=== PATIENT | female | born 1945 | race Caucasian/White ===

== ENCOUNTER 2018-09-22 00:34 | Inpatient (IN) | payer MEDICARE, BC ==
[2018-09-22] MEDS ORDERED: Famotidine/PF 20 mg/2ml Vial ONE (01:17)
[2018-09-22] MEDS ORDERED: Mag-Al Plus 1200 MG/1200 MG/120 MG/30 ML UDCUP ONE (01:17)
[2018-09-22] MEDS ORDERED: Lidocaine Viscous Sol 2% 15 ml UD Cup ONE (01:17)
[2018-09-22 01:19] LABS: #Basophils 0.1 thou/uL (0.0-0.2); #Eosinphils 0.1 thou/uL (0.0-0.7); #Lymphocytes 1.1 thou/uL (1.20-3.40); #Monocytes 0.6 thou/uL (0.11-0.59); %Basophils 0.7 % (0.0-1.0); %Eosinophils 0.7 % (0.0-10.0); %Monocytes 5.6 % (0.0-10.0); Hemoglobin 13.1 g/dL (12.0-16.0); Mean Corpuscular HGB CONC 34.3 g/dL (32.0-36.0); Mean Corpuscular Hemoglobin 27.2 pg (27.0-31.0); Mean Corpuscular Volume 79.2 fL (78.0-98.0); Mean Platelet Volume 8.7 fL (7.4-10.4); Platelet Count 216 thou/uL (130-400); RBC Distribution Width 13.1 % (11.5-14.5); Red Blood Cell (RBC) Count 4.84 mill/uL (4.20-5.40); White Blood Cell (WBC) Count 10.9 thou/uL (4.8-10.8)
[2018-09-22 01:44] LABS: ALT (SGPT) 246 U/L (8-55); AST (SGOT) 481 U/L (5-34); Albumin 3.7 g/dL (3.4-4.8); Alkaline Phosphatase 88 U/L (40-150); Anion Gap 14 mmol/L (10-20); BUN (Urea Nitrogen) 16 mg/dL (9.8-20.1); Bilirubin, Total 1.3 mg/dL (0.2-1.2); Calc. Creatinine Clearance 0 mL/min (70-130); Carbon Dioxide 21 mmol/L (23-31); Chloride 104 mmol/L (98-107); Estimated GFR-MDRD 72; Glucose 186 mg/dL (83-110); Potassium 4.2 mmol/L (3.5-5.1); Protein, Total 5.7 g/dL (6.0-8.3); Sodium 135 mmol/L (136-145)
[2018-09-22] MEDS ORDERED: Ondansetron PF 4 MG/2 ML Vial ONE (01:50)
[2018-09-22] MEDS ORDERED: Morphine 4 MG/ML Carpuject ONE ×2 (01:50→02:25)
[2018-09-22 02:03] LABS: Lipase Greater than 16000 U/L (8-78)
[2018-09-22] MEDS ORDERED: Ondansetron PF 4 MG/2 ML Vial IVP PRN (03:37)
[2018-09-22 03:39] VITALS: BMI 27.9
[2018-09-22] MEDS: Dextrose 5 %-0.45 % NaCl 1,000 ML IV SCH ×3 (04:00→22:30)
[2018-09-22] MEDS: Morphine 4 MG/ML VIAL SLOW IVP PRN ×4 (06:29→12:51)
--- NOTE | 2018-09-22 07:37 | RAD ---
CHEST 1 VIEW: HISTORY: Epigastric pain. COMPARISON: None. FINDINGS: Lungs without focal confluent airspace consolidation, pneumothorax, or effusion. There is a nodule i n the right mid lung. No acute osseous abnormality. Incomplete evaluation of ACDF hardware. IMPRESSION: Focal nodule right mid lung projecting over the anterior right 4th rib. Nonemergent CT of the chest is recommended. CODE T CODE LN POS: [facility]
[2018-09-22 08:57] LABS: #Monocytes 0.6 thou/uL (0.11-0.59); %Basophils 0.1 % (0.0-1.0); %Eosinophils 0.2 % (0.0-10.0); %Lymphocytes 11.7 % (21.0-51.0); %Monocytes 6.9 % (0.0-10.0); Hemoglobin 11.8 g/dL (12.0-16.0); Mean Corpuscular HGB CONC 32.1 g/dL (32.0-36.0); Mean Corpuscular Hemoglobin 27.1 pg (27.0-31.0); Mean Corpuscular Volume 84.4 fL (78.0-98.0); Mean Platelet Volume 7.5 fL (7.4-10.4); Platelet Count 237 thou/uL (130-400); RBC Distribution Width 13.7 % (11.5-14.5); Red Blood Cell (RBC) Count 4.36 mill/uL (4.20-5.40); White Blood Cell (WBC) Count 8.7 thou/uL (4.8-10.8)
[2018-09-22 09:06] LABS: ALT (SGPT) 373 U/L (8-55); AST (SGOT) 486 U/L (5-34); Albumin 3.3 g/dL (3.4-4.8); Alkaline Phosphatase 83 U/L (40-150); Anion Gap 9 mmol/L (10-20); BUN (Urea Nitrogen) 13 mg/dL (9.8-20.1); Bilirubin, Total 0.8 mg/dL (0.2-1.2); Calc. Creatinine Clearance 100 mL/min (70-130); Calcium 8.5 mg/dL (7.8-10.44); Carbon Dioxide 22 mmol/L (23-31); Chloride 104 mmol/L (98-107); Estimated GFR-MDRD 90; Glucose 141 mg/dL (83-110); Protein, Total 5.3 g/dL (6.0-8.3); Sodium 131 mmol/L (136-145)
[2018-09-22 09:19] LABS: Lipase 5688 U/L (8-78)
--- NOTE | 2018-09-22 09:50 | ULT ---
ULTRASOUND ABDOMEN LIMITED: HISTORY: Abdominal pain. COMPARISON: None. FINDINGS: There is some fluid surrounding the pancreatic head. The pancreatic duct measures just over 3 mm, up per limits of normal. There is mild to moderate hepatic biliary dilatation. The common bile duct me asures 7 mm. Gallbladder wall thickness is normal. The right kidney measures 10.1 x 4.9 x 5 cm with a small amount of perirenal fluid. IMPRESSION: 1. Mild intrahepatic and extrahepatic biliary dilatation. A nonvisualized choledocholithiasis is a possibility. 2. Small volume fluid surrounding the pancreatic head as well as perirenal fluid can be seen with pa ncreatitis. POS: [facility]
--- NOTE | 2018-09-22 10:57 | HP ---
CHIEF COMPLAINT: Epigastric abdominal pain. HISTORY OF PRESENT ILLNESS: This is a 73-year-old female patient with a history of hypertension, hypercholesteremia, hypothyroidism, who presents to the Emergency Department with sudden onset of epigastric pain. The patient states that over the past several weeks she has had on and off episodes of feeling fatigue, but no abdominal pain. No nausea or vomiting. Last night at about 5 p.m., she was sitting watching TV when she developed sudden onset of epigastric abdominal pain that continued to worsen throughout the night. She was able to watch the movie and went to bed, but the pain worsened and she had her take her to the Emergency Department for further evaluation. In the Emergency Department, she was found to have extremely elevated pancreatic enzymes with the lipase over 16,000, elevated AST and ALT and slightly elevated bilirubin. She had normal calcium level, normal cardiac enzymes. She had significant relief of her pain with morphine in the Emergency Department and she is much more comfortable at this time. Of note, she admits to eating more winters and steak over the past several months. She did not have any relief of her pain with food. She did eat some yogurt after her pain developed. With the pain last night, she had an episode of feeling shaky and sweating. Her pain improved from 10/10 down to 2/10 with the morphine in the Emergency Department. PAST MEDICAL HISTORY: Hypertension, hyperlipidemia, history of tachycardia, insomnia, hypothyroidism, recurrent urinary tract infection. PAST SURGICAL HISTORY: Tonsillectomy, shoulder repair, cataract repair, cervical neck surgery, basal cell carcinoma removal. ALLERGIES: HYDROXYZINE. SOCIAL HISTORY: She is . She lives with her at the [facility]. No smoking, no alcohol. FAMILY HISTORY: No history of pancreatitis, but history of abdominal abnormalities. REVIEW OF SYSTEMS: As per the history of present illness. CONSTITUTIONAL: She denies any recent fevers, chills, or recent illness. HEENT: Denies headache. Denies visual or hearing changes. PULMONARY: Denies congestion or recent upper respiratory infection. Denies cough or hemoptysis. CARDIAC: Denies chest pain, shortness of breath, or palpitations. GI: As per the history of present illness. She denies melena, hematochezia. Denies nausea, vomiting, diarrhea. : Positive history for frequent urinary tract infections. Recently on antibiotics for such. NEUROLOGIC: No weakness, seizure, or syncope. MUSCULOSKELETAL: History of chronic back pain, chronic neck pain. MEDICATIONS: Include: 1. Synthroid 112 mcg daily. 2. Imipramine 10 mg 3 times a day. 3. Carvedilol 25 mg b.i.d. 4. Nasonex p.r.n. 5. Pravastatin 10 mg daily. 6. Estradiol 0.5 mg daily. 7. Provera 2.5 mg daily. 8. Ambien 5 mg p.r.n. sleep. 9. Aspirin 81 mg daily. 10. Fish oil daily. 11. Zinc. 12. Cranberry. 13. Calcium. 14. Lecithin daily. PHYSICAL EXAMINATION: VITAL SIGNS: Temperature 98.1, pulse is 73, respirations 18, blood pressure 117/71, pulse ox is 94% on room air. GENERAL: She is awake and alert, in no acute distress. Speech is clear. HEENT: Mucosa is moist. NECK: Supple. HEART: Regular rate and rhythm. LUNGS: Clear. ABDOMEN: With decreased bowel sounds. Soft, positive epigastric tenderness. No rebound. Positive guarding. EXTREMITIES: No clubbing, cyanosis, or edema. 2+ peripheral pulses bilaterally. LABORATORY DATA: Ultrasound is pending. Sodium 135, potassium 4.2, chloride 104, CO2 of 21, BUN and creatinine 16 and 0.79, serum glucose of 186. Calcium normal, total bilirubin 1.3, AST of 481, lipase greater than 16,000. White blood cell count 10,900, hemoglobin and hematocrit 13.1 and 38.3, platelets of 216. A slight left shift with elevated neutrophils and decreased lymphocytes. ASSESSMENT AND PLAN: This is a 73-year-old female patient with acute pancreatitis. I agree with admission. I will continue IV fluids, rehydration, and n.p.o. status. She has a [place] criteria of 2. Await GI evaluation to decide on either ERCP or consider management with prolonged IV fluids and n.p.o. status since she is stable at this point. Hypertension. We will continue to monitor and hold her medicines while she is getting the morphine as well as keeping blood pressure stable. Job ID: [id number]
[2018-09-22] MEDS ORDERED: Morphine 2 MG/ML SYRINGE SLOW IVP PRN (14:45)
--- NOTE | 2018-09-22 16:39 | CON ---
DATE OF CONSULTATION: 09/22/2018 HISTORY OF PRESENT ILLNESS: The patient is a 73-year-old female, who was in normal state of health until the day of admission when she developed sudden onset epigastric pain without nausea or vomiting. She has never had pain like this before. She said it became so severe, she had to come into the emergency room. She denies any weight loss, any prior episodes of pancreatitis. PAST MEDICAL HISTORY: Includes hypertension, hyperlipidemia, tachycardia, hypothyroidism. PAST SURGICAL HISTORY: Includes tonsillectomy, shoulder repair, cervical neck surgery, basal cell carcinoma. ALLERGIES: INCLUDE HYDROXYZINE. SOCIAL HISTORY: She does not smoke or drink. FAMILY HISTORY: Negative for pancreatitis or GI or other liver problems. REVIEW OF SYSTEMS: CONSTITUTIONAL: No fever or chills. No weight loss. EYES: No blurred vision or double vision. ENT: No sore throat or earaches. CARDIOVASCULAR: No chest pain or palpitations. PULMONARY: No shortness of breath, cough, or wheezing. GI: See above. : No hematuria or dysuria. MUSCULOSKELETAL: No joint pain or muscle weakness. SKIN: No rashes. NEUROLOGIC: No numbness or seizure activity. PHYSICAL EXAMINATION: GENERAL: Shows a thin white female, in no acute distress. VITAL SIGNS: Temperature 97.8, pulse 71, respiratory rate 16, and blood pressure 120/70. HEENT: Unremarkable. NECK: Supple. CHEST: Clear. CARDIOVASCULAR: Regular rate and rhythm. ABDOMEN: Soft, tender in epigastric area without rebound or guarding. Bowel sounds are present, normoactive. RECTAL: Deferred. EXTREMITIES: Normal. NEUROLOGIC: Nonfocal. LABORATORY DATA: Shows admission glucose 186, total bilirubin 1.3, AST of 481, ALT of 246, alkaline phosphatase of 88, and lipase is greater than 16,000. Repeat showed a total bilirubin 0.8, AST 486, ALT of 373, and lipase of 5688. Gallbladder ultrasound shows no gallstones in the gallbladder. She does have a common bile duct of 7 mm. ASSESSMENT: Biliary pancreatitis. RECOMMENDATIONS: 1. Surgical opinion. 2. Repeat LFTs in the a.m. If remaining elevated, may consider ERCP prior to cholecystectomy versus cholecystectomy with intraoperative cholangiogram. Job ID: [id number]
--- NOTE | 2018-09-22 16:56 | CON ---
DATE OF CONSULTATION: 09/22/2018 CHIEF COMPLAINT: Epigastric pain. HISTORY OF PRESENT ILLNESS: This is a 73-year-old female, otherwise fairly healthy, who presents with severe epigastric pain, admitted to the hospital with 10/10 sharp pain in her epigastric area radiated straight to her back. She was found to have pancreatitis, admitted to the hospital with initial lipase over 16,000; it is now about 6000. Her pain is improved. No nausea or vomiting today. She has never had jaundice, pancreatitis, or known gallstones previously. No history of alcohol use. PAST MEDICAL HISTORY: Hypertension, hyperlipidemia, tachycardia. PAST SURGICAL HISTORY: Tonsillectomy, shoulder, cataract, cervical neck, basal cell carcinoma. ALLERGIES: HYDROXYZINE. MEDICATIONS: See list. SOCIAL HISTORY: . No smoking, alcohol. REVIEW OF SYSTEMS: Ten-system review of systems is otherwise negative unless described above. FAMILY HISTORY: Noncontributory to GI malignancy or anesthetic related complication. PHYSICAL EXAMINATION: VITAL SIGNS: Blood pressure 120/70, pulse 71, respirations 16, she is afebrile. She has voided multiple times. HEENT: Sclerae anicteric. Oropharynx clear. NECK: No lymphadenopathy. CHEST: Clear. HEART: Regular rate and rhythm. ABDOMEN: Soft. Tender at the epigastric, minimal. No guarding or rebound. EXTREMITIES: No ischemia or edema to extremities. LABORATORY DATA: White blood cell count is 8, hemoglobin 11, platelet count is 237. Sodium 131, potassium 4.0, creatinine 0.65, bilirubin normal 0.8, but AST and ALT are elevated at 46 and 373, alk phos normal 83. Lipase is down from 16,000 to 5688. Ultrasound shows dilated common bile duct, intrahepatic bile ducts, but no obvious gallstones. No gallbladder wall thickening. ASSESSMENT: Pancreatitis, uncertain etiology. No stones on the ultrasound. PLAN: We will let her labs trend down. We will discuss with Dr. Taylor whether she needs cholecystectomy prior to discharge. I could perform cholangiogram at the time of cholecystectomy. Job ID: [id number]
[2018-09-23] MEDS ORDERED: hydrALAZINE 20 MG/ML VIAL SLOW IVP PRN (07:45)
[2018-09-23] MEDS: Levothyroxine Sodium 112 MCG TAB PO SCH (08:22)
[2018-09-23] MEDS: Dextrose 5 %-0.45 % NaCl 1,000 ML IV SCH ×2 (08:24→18:33)
[2018-09-23] MEDS ORDERED: Levothyroxine Sodium 112 MCG TAB PO SCH (09:00)
[2018-09-23 09:22] LABS: #Lymphocytes 0.9 thou/uL (1.20-3.40); #Monocytes 0.8 thou/uL (0.11-0.59); #Neutrophils 7.7 thou/uL (1.40-6.50); %Basophils 0.3 % (0.0-1.0); %Eosinophils 0.5 % (0.0-10.0); %Lymphocytes 9.4 % (21.0-51.0); %Neutrophils 81.8 % (42.0-75.0); Hemoglobin 12.8 g/dL (12.0-16.0); Mean Corpuscular HGB CONC 31.9 g/dL (32.0-36.0); Mean Corpuscular Hemoglobin 27.1 pg (27.0-31.0); Mean Corpuscular Volume 85.1 fL (78.0-98.0); Mean Platelet Volume 7.4 fL (7.4-10.4); Platelet Count 216 thou/uL (130-400); RBC Distribution Width 13.8 % (11.5-14.5); Red Blood Cell (RBC) Count 4.73 mill/uL (4.20-5.40); White Blood Cell (WBC) Count 9.4 thou/uL (4.8-10.8)
[2018-09-23 09:50] LABS: ALT (SGPT) 377 U/L (8-55); AST (SGOT) 269 U/L (5-34); Albumin 3.5 g/dL (3.4-4.8); Alkaline Phosphatase 111 U/L (40-150); Anion Gap 8 mmol/L (10-20); BUN (Urea Nitrogen) 4 mg/dL (9.8-20.1); Bilirubin, Total 0.8 mg/dL (0.2-1.2); Calc. Creatinine Clearance 112 mL/min (70-130); Calcium 8.3 mg/dL (7.8-10.44); Carbon Dioxide 25 mmol/L (23-31); Chloride 105 mmol/L (98-107); Estimated GFR-MDRD Greater than 90; Globulin 2.2 g/dL (2.4-3.5); Glucose 132 mg/dL (83-110); Lipase 304 U/L (8-78); Potassium 3.1 mmol/L (3.5-5.1); Protein, Total 5.7 g/dL (6.0-8.3); Sodium 135 mmol/L (136-145)
--- NOTE | 2018-09-23 16:20 | PRG ---
DATE OF SERVICE: 09/23/2018 SUBJECTIVE: Ms. Emerson has mild pain in her epigastric area, but it has much improved since admission. She is starting to get hungry. OBJECTIVE: VITAL SIGNS: She is afebrile. Vital signs are stable. ABDOMEN: Soft, tender epigastric. LABORATORY DATA: White count is 9, hemoglobin is 12. Creatinine 0.58. Her lipase is down to 304. Bilirubin is still normal; however, her transaminases are trending down. ASSESSMENT: Questionable biliary pancreatitis versus idiopathic. PLAN: Laparoscopic cholecystectomy with intraoperative cholangiogram. There is no OR availability to late tonight to do today, so I am going to let her do clears and attempt to do it again tomorrow. I am limited by OR availability. Job ID: [id number]
--- NOTE | 2018-09-23 18:54 | PRG ---
DATE OF SERVICE: 09/23/2018 SUBJECTIVE: The patient is feeling better. She is having less pain. OBJECTIVE: VITAL SIGNS: Temperature is 98.2, pulse 80, respiratory rate 18, and blood pressure 154/75. HEENT: Unremarkable. CHEST: Clear. CARDIOVASCULAR: Regular rate and rhythm. ABDOMEN: Tender in the epigastric area, but less so than yesterday. LABORATORY DATA: Laboratory shows a total bilirubin 0.8, AST 269, ALT of 377, and alkaline phosphatase of 111. ASSESSMENT: Biliary pancreatitis. RECOMMENDATIONS: 1. For cholecystectomy tomorrow, intraoperative cholangiogram. 2. I am suspicious the patient's LFTs do not seem to be dropping very fast, therefore, she may have a retained stone. Job ID: [id number]
--- NOTE | 2018-09-23 19:12 | PRG ---
DATE OF SERVICE: 09/23/2018 SUBJECTIVE: The patient is feeling better. She is requiring less analgesia to be comfortable, last dose of morphine was yesterday afternoon. She does feel like she is hungry, but continues to have some tenderness. OBJECTIVE: VITAL SIGNS: Temperature 99.3, pulse of 82, respirations 20, blood pressure 141/82, and pulse ox is 95% on room air. GENERAL: She is awake and alert, in no acute distress. Speech is clear. NECK: Supple. SKIN: Without jaundice. HEART: Regular rate and rhythm. LUNGS: Clear. ABDOMEN: Positive bowel sounds. Positive epigastric tenderness. LABORATORY DATA: White blood cell count 9400, hemoglobin and hematocrit 12.8 and 40.3, and platelets of 216. Sodium 131, potassium 3.1, chloride 105, CO2 of 25, BUN and creatinine 4 and 0.58, and serum glucose of 132. AST and ALT trending down at 269 and 377. Albumin of 3.5, lipase down to 304, it was 5688 yesterday. ASSESSMENT AND PLAN: This is a 73-year-old female, who was admitted with acute pancreatitis. We will continue to monitor her clinical state as well as her enzymes. Dr. Taylor and Dr. Lambert discussing further plan with either observing or proceeding with an endoscopic retrograde cholangiopancreatography or cholecystectomy with intraoperative cholangiogram. Job ID: [id number]
[2018-09-23] MEDS: Ibuprofen 200 MG TAB PO PRN (21:24)
[2018-09-24] MEDS: Dextrose 5 %-0.45 % NaCl 1,000 ML IV SCH (04:27)
[2018-09-24] MEDS: Ibuprofen 200 MG TAB PO PRN (05:48)
[2018-09-24 06:29] LABS: #Lymphocytes 0.5 thou/uL (1.20-3.40); #Monocytes 0.8 thou/uL (0.11-0.59); #Neutrophils 5.7 thou/uL (1.40-6.50); %Basophils 0.3 % (0.0-1.0); %Eosinophils 0.4 % (0.0-10.0); %Lymphocytes 7.6 % (21.0-51.0); %Monocytes 11.3 % (0.0-10.0); %Neutrophils 80.5 % (42.0-75.0); Hemoglobin 12.4 g/dL (12.0-16.0); Mean Corpuscular HGB CONC 33.2 g/dL (32.0-36.0); Mean Corpuscular Hemoglobin 28.5 pg (27.0-31.0); Mean Corpuscular Volume 85.7 fL (78.0-98.0); Mean Platelet Volume 7.6 fL (7.4-10.4); Platelet Count 162 thou/uL (130-400); RBC Distribution Width 13.8 % (11.5-14.5); Red Blood Cell (RBC) Count 4.37 mill/uL (4.20-5.40); White Blood Cell (WBC) Count 7.1 thou/uL (4.8-10.8)
[2018-09-24 06:47] LABS: ALT (SGPT) 242 U/L (8-55); AST (SGOT) 99 U/L (5-34); Albumin 3.3 g/dL (3.4-4.8); Alkaline Phosphatase 103 U/L (40-150); Anion Gap 11 mmol/L (10-20); BUN (Urea Nitrogen) Less than 4 mg/dL (9.8-20.1); Bilirubin, Total 1.3 mg/dL (0.2-1.2); Calc. Creatinine Clearance 105 mL/min (70-130); Calcium 8.1 mg/dL (7.8-10.44); Carbon Dioxide 24 mmol/L (23-31); Chloride 100 mmol/L (98-107); Estimated GFR-MDRD Greater than 90; Globulin 2.2 g/dL (2.4-3.5); Glucose 115 mg/dL (83-110); Lipase 40 U/L (8-78); Potassium 3.3 mmol/L (3.5-5.1); Protein, Total 5.5 g/dL (6.0-8.3); Sodium 132 mmol/L (136-145)
[2018-09-24] MEDS: Levothyroxine Sodium 112 MCG TAB PO SCH (08:05)
--- NOTE | 2018-09-24 09:14 | RAD ---
PORTABLE UPRIGHT FRONTAL CHEST RADIOGRAPH: Date: 09-24-18 Comparison: 09-22-18 History: Fever. FINDINGS: Cervical spine post-operative hardware present. Mild atherosclerotic calcification of the aortic arch noted. No pneumothorax, pleural fluid, focal consolidation or alveolar edema. IMPRESSION: No acute findings. POS: [facility]
[2018-09-24 09:16] LABS: Bilirubin Negative (Negative); Blood, Urine Small (Negative); Clarity CLOUDY (Clear); Glucose, Urine (Dipstick) Negative (Negative); Leukocyte Small (Negative); Nitrite Negative (Negative); Protein, Urine (Dipstick) 100 mg/dL (Neg-Trace); Specific Gravity, Urine 1.012 (1.002-1.036)
--- NOTE | 2018-09-24 09:24 | PRG ---
DATE OF SERVICE: 09/24/2018 SUBJECTIVE: The patient is feeling significantly better, improved pain, and no longer requiring morphine for analgesia. She is taking some Ibuprofen early this morning. She spiked a fever early this morning and continues to have a temperature over 101, but denies any increased pain. Denies nausea or vomiting. OBJECTIVE: VITAL SIGNS: Temperature 101.5, T-max of 102.5, pulse of 100, respirations 19, blood pressure 122/71, pulse ox is 92% to 94% on room air. GENERAL: She is awake and alert, in no acute distress. She is flushed. HEENT: Mucosa is moist. NECK: Supple. HEART: Regular rate and rhythm. LUNGS: Clear bilaterally. ABDOMEN: With positive bowel sounds. No tenderness. No masses. EXTREMITIES: With no edema. ASSESSMENT AND PLAN: 1. This is a 73-year-old female with acute pancreatitis, likely biliary pancreatitis. Labs have improved. AST and ALT are trending down significantly from yesterday. Lipase down to 40 from 304 yesterday and 5688 the day before and over 16,000 on admission. AST and ALT are now 99 and [address] Plan [address] Lambert and Dr. Taylor. Possible cholecystectomy with intraoperative cholangiogram today. 2. Fever, likely secondary to cholangitis. We will likely need intraoperative antibiotics. Await Dr. Taylor's and Dr. Lambert's evaluation. We will check urinalysis and chest x-ray. Job ID: [id number]
[2018-09-24 09:39] LABS: Bacteria/HPF Rare-Few HPF (None Seen); Hyaline Casts/LPF 0-3 HYALINE CAST LPF (0-3 Hyaline); Pathc Cast-AUWi Flag 0.43 (0-2.49); WBC/HPF 21-50 HPF (0-3)
[2018-09-24 09:51] LABS: RBC/HPF 0-3 HPF (0-3)
[2018-09-24] MEDS ORDERED: Iothalamate Meglumine 60% 50 ML VIAL FS ONE (16:20)
[2018-09-24] MEDS ORDERED: Bupivacaine/Epinephrine 0.25% 30 ML VIAL ONE (16:20)
[2018-09-24] MEDS ORDERED: Fentanyl 100 MCG/2 ML VIAL ONE (16:56)
[2018-09-24] MEDS ORDERED: Famotidine/PF 20 mg/2ml Vial ONE (17:11)
[2018-09-24] MEDS ORDERED: Meperidine HCl/PF 25 MG/ML VIAL SLOW IVP PRN (17:18)
[2018-09-24] MEDS ORDERED: Promethazine HCl 25 MG/ML VIAL IM PRN ×2 (17:18→19:54)
[2018-09-24] MEDS ORDERED: Promethazine HCl 25 MG/ML VIAL SLOW IVP PRN (17:18)
[2018-09-24] MEDS ORDERED: HYDROmorphone 2 MG/ML VIAL SLOW IVP PRN (17:18)
[2018-09-24] MEDS ORDERED: SUGAMMADEX SODIUM 500 MG/5 ML VIAL ONE (18:42)
--- NOTE | 2018-09-24 19:22 | RAD ---
INTRAOPERATIVE CHOLANGIOGRAM 09/24/18 PROVIDED CLINICAL HISTORY: Cholecystectomy. FINDINGS: Spot fluoroscopic images of the opacified biliary system demonstrate no definite evidence for persist ent filling defect. Correlate with real time findings. IMPRESSION: As above. POS: [facility]
[2018-09-24] MEDS ORDERED: Mag-Al 1200 mg/1200 mg/30 ML UDCUP PO PRN (19:54)
[2018-09-24] MEDS ORDERED: Calcium Carbonate 500 MG ChewTAB PO PRN (19:54)
[2018-09-24] MEDS ORDERED: Dextrose 50% Abboject 50 ML SYRINGE SLOW IVP PRN (19:54)
[2018-09-24] MEDS ORDERED: Acetaminophen 325 MG TAB PO PRN (19:54)
[2018-09-24] MEDS ORDERED: Morphine 4 MG/ML VIAL SLOW IVP PRN ×2 (19:54)
[2018-09-24] MEDS ORDERED: Ondansetron PF 4 MG/2 ML Vial IVP PRN (19:54)
[2018-09-24] MEDS ORDERED: Dextrose 5% in Water 1,000 ML IV PRN (19:54)
[2018-09-24] MEDS ORDERED: Ketorolac Tromethamine 30 MG/ML VIAL IVP PRN (19:54)
[2018-09-24] MEDS ORDERED: HYDROcodone/Acetaminophen 10/325 mg Tablet PO PRN (19:54)
[2018-09-24] MEDS ORDERED: Sodium Chloride 0.9% 1,000 ML IV SCH (19:54)
[2018-09-24] MEDS ORDERED: hydrALAZINE 20 MG/ML VIAL SLOW IVP PRN (19:54)
[2018-09-24] MEDS ORDERED: Famotidine/PF 20 mg/2ml Vial SLOW IVP SCH (21:00)
[2018-09-24] MEDS: Famotidine 20 MG TAB PO SCH (21:01)
[2018-09-24] MEDS ORDERED: Ondansetron PF 4 MG/2 ML Vial ONE (21:24)
[2018-09-24] MEDS ORDERED: Sterile Water 10 ML VIAL ONE (21:24)
[2018-09-24] MEDS ORDERED: Ketorolac Tromethamine 30 MG/ML VIAL ONE (21:24)
[2018-09-24] MEDS ORDERED: Dexamethasone 20 MG/5 ML VIAL ONE (21:24)
[2018-09-24] MEDS ORDERED: CEFAZOLIN 1 GM VIAL ONE (21:24)
[2018-09-24] MEDS ORDERED: PROPOFOL 200 MG/20 ML VIAL ONE (21:24)
[2018-09-24] MEDS ORDERED: Lidocaine 1% PF 5 ML VIAL ONE (21:24)
[2018-09-25 07:28] VITALS: BP 133/76; TEMP 98
[2018-09-25] MEDS: Levothyroxine Sodium 112 MCG TAB PO SCH (08:30)
[2018-09-25] MEDS: Famotidine 20 MG TAB PO SCH (08:31)
[2018-09-25 08:46] LABS: #Lymphocytes 0.5 thou/uL (1.20-3.40); #Monocytes 0.6 thou/uL (0.11-0.59); #Neutrophils 7.3 thou/uL (1.40-6.50); %Basophils 0.3 % (0.0-1.0); %Eosinophils 0.2 % (0.0-10.0); %Lymphocytes 6.2 % (21.0-51.0); %Monocytes 7.3 % (0.0-10.0); Hemoglobin 12.6 g/dL (12.0-16.0); Mean Corpuscular HGB CONC 32.6 g/dL (32.0-36.0); Mean Corpuscular Hemoglobin 28.2 pg (27.0-31.0); Mean Corpuscular Volume 86.6 fL (78.0-98.0); Mean Platelet Volume 8.5 fL (7.4-10.4); Platelet Count 166 thou/uL (130-400); Red Blood Cell (RBC) Count 4.46 mill/uL (4.20-5.40); White Blood Cell (WBC) Count 8.5 thou/uL (4.8-10.8)
[2018-09-25 08:51] LABS: #Lymphocytes 0.6 thou/uL (1.20-3.40); #Monocytes 0.5 thou/uL (0.11-0.59); #Neutrophils 7.5 thou/uL (1.40-6.50); %Eosinophils 0.1 % (0.0-10.0); %Lymphocytes 6.7 % (21.0-51.0); %Monocytes 6.1 % (0.0-10.0); %Neutrophils 87.1 % (42.0-75.0); Hemoglobin 12.5 g/dL (12.0-16.0); Mean Corpuscular HGB CONC 32.9 g/dL (32.0-36.0); Mean Corpuscular Hemoglobin 28.2 pg (27.0-31.0); Mean Corpuscular Volume 85.8 fL (78.0-98.0); Mean Platelet Volume 8.3 fL (7.4-10.4); Platelet Count 178 thou/uL (130-400); RBC Distribution Width 13.9 % (11.5-14.5); Red Blood Cell (RBC) Count 4.44 mill/uL (4.20-5.40); White Blood Cell (WBC) Count 8.6 thou/uL (4.8-10.8)
[2018-09-25] MEDS ORDERED: Carvedilol 25 MG TAB PO SCH (09:00)
[2018-09-25 09:10] LABS: ALT (SGPT) 175 U/L (8-55); AST (SGOT) 83 U/L (5-34); Albumin 3.3 g/dL (3.4-4.8); Alkaline Phosphatase 104 U/L (40-150); Anion Gap 13 mmol/L (10-20); BUN (Urea Nitrogen) 7 mg/dL (9.8-20.1); Bilirubin, Total 0.8 mg/dL (0.2-1.2); Calc. Creatinine Clearance 107 mL/min (70-130); Calcium 8.4 mg/dL (7.8-10.44); Carbon Dioxide 19 mmol/L (23-31); Chloride 102 mmol/L (98-107); Estimated GFR-MDRD Greater than 90; Globulin 2.6 g/dL (2.4-3.5); Glucose 150 mg/dL (83-110); Lipase 22 U/L (8-78); Potassium 3.3 mmol/L (3.5-5.1); Protein, Total 5.9 g/dL (6.0-8.3); Sodium 131 mmol/L (136-145)
[2018-09-25 09:12] LABS: ALT (SGPT) 171 U/L (8-55); AST (SGOT) 80 U/L (5-34); Albumin 3.4 g/dL (3.4-4.8); Alkaline Phosphatase 103 U/L (40-150); Anion Gap 14 mmol/L (10-20); BUN (Urea Nitrogen) 7 mg/dL (9.8-20.1); Bilirubin, Total 0.7 mg/dL (0.2-1.2); Calc. Creatinine Clearance 105 mL/min (70-130); Calcium 8.4 mg/dL (7.8-10.44); Carbon Dioxide 20 mmol/L (23-31); Chloride 102 mmol/L (98-107); Estimated GFR-MDRD Greater than 90; Globulin 2.5 g/dL (2.4-3.5); Glucose 153 mg/dL (83-110); Potassium 3.3 mmol/L (3.5-5.1); Protein, Total 5.9 g/dL (6.0-8.3); Sodium 133 mmol/L (136-145)
[2018-09-25] MEDS ORDERED: cefTRIAXone\\ROCEPHIN 2 GM in Sodium Chloride 0.9% 100 ML IVPB SCH (11:00)
[2018-09-25] MEDS ORDERED: metroNIDAZOLE 500 MG in Premix Bag 1 BAG IVPB SCH (12:00)
--- NOTE | 2018-09-25 13:43 | DIS ---
DATE OF ADMISSION: 09/22/2018 DATE OF DISCHARGE: 09/25/2018 ADMISSION DIAGNOSIS: Acute pancreatitis. DISCHARGE DIAGNOSIS: Biliary pancreatitis. CONSULTATIONS: Dr. Lambert for Surgery, Dr. Taylor for Gastroenterology. PROCEDURES: Laparoscopic cholecystectomy with intraoperative cholangiogram, abdominal ultrasound. HOSPITAL COURSE: This is a 73-year-old female patient with history of hypertension, hypercholesteremia, hypothyroidism, who admitted for sudden onset of epigastric pain. In the Emergency Department, she was found to have a lipase over 16,000 with elevated AST, ALT, and bilirubin. She was placed on n.p.o. status with IV fluids and she had significant decrease in her lipase the following day. Ultrasound of her abdomen revealed no gallstones, but dilated common bile duct. She was seen by Dr. Taylor, who agreed with the biliary pancreatitis, agreed with n.p.o. status and trending liver function test and pancreatic function test. I recommended Surgery evaluation. Dr. Lambert saw the patient and recommended cholecystectomy with cholangiogram. The patient tolerated the procedure well with no complications. She had decreased pain and only minimal incisional pain after the postoperative period. She did run fever today per Surgery, which resolved after the cholecystectomy and she was stable for discharge. DISCHARGE PHYSICAL EXAMINATION: VITAL SIGNS: Temperature 98.0, pulse is 73, respirations 18, blood pressure 133/76, pulse ox is 93% on room air. GENERAL: She is awake and alert, in no acute distress. Speech is clear. NECK: Supple. HEART: Regular rate and rhythm. LUNGS: Clear. ABDOMEN: With positive bowel sounds. Soft. Minimal incisional tenderness. No epigastric tenderness. LABORATORY DATA: AST and ALT prior to discharge were down to 99 and 242 with labs pending. White blood cell count of 7100. DISCHARGE MEDICATIONS: Include: 1. Pepcid 20 mg b.i.d. 2. Carvedilol 25 mg b.i.d. 3. Synthroid 112 mcg daily. 4. Imipramine 10 mg t.i.d. 5. Pravastatin 10 mg daily. 6. Estrogen and Provera daily. 7. Ambien 5 mg p.r.n. 8. Aspirin 81 mg daily. FOLLOWUP INSTRUCTIONS: The patient is to follow up in my office in 1 to 2 weeks[address] Follow up with Dr. Lambert for postoperative period. Job ID: [id number]
--- NOTE | 2018-09-26 13:48 | OP ---
DATE OF PROCEDURE: 09/24/2018 PREOPERATIVE DIAGNOSIS: Gallstone pancreatitis. POSTOPERATIVE DIAGNOSIS: Gallstone pancreatitis. PROCEDURES: Laparoscopic cholecystectomy with intraoperative cholangiogram. ANESTHESIA: General. ESTIMATED BLOOD LOSS: Minimal. COMPLICATION: None. SPECIMEN: Gallbladder. FINDINGS: Normal cholangiogram. DESCRIPTION OF PROCEDURE: The patient was taken to the operating room and laid supine on the operating room table. After general anesthetic was obtained, the abdomen was prepped and draped in a sterile fashion. A curved incision was made below the umbilicus. Cautery was used to dissect down to and score the fascia. Abdominal cavity was entered bluntly using Lina clamp. Holding stitch of PDS was placed on each side of the fascia. Nicole trocar was placed. High-flow pneumoperitoneum was obtained. An upper midline 5 mm port as well as 2 right upper quadrant 5 mm ports were placed under direct visualization. The gallbladder was retracted from the gallbladder fossa. The peritoneum was opened anteriorly and posteriorly. The critical view triangle was seen showing only the cystic duct and cystic artery branching medial to lateral and no other branching structures. Two clips were placed proximally and one distal on the cystic artery, and was cut using laparoscopic scissors. A clip was placed high on the cystic duct. A small ductotomy was made just proximal to that and a cholangiocatheter was brought in through a separate stab incision, placed in the cystic duct and a cholangiogram was performed, which shows good contrast flow into the duodenum without obstruction. A good contrast flow into the duodenum without obstruction. Cholangiocatheter was removed and 2 clips were placed proximally on the cystic duct. Cystic duct cut using laparoscopic scissors. Cautery was used to dissect the gallbladder out of the gallbladder fossa. Gallbladder was placed in an EndoCatch bag and brought out through the Nicole. There was no bleeding in the liver bed. All port sites were infiltrated using local anesthetic. All ports were removed under camera visualization and pneumoperitoneum was let down. PDS was used to close the fascial defect below the umbilicus. All incisions were irrigated and closed using 4-0 Monocryl and Dermabond. The patient was sent to Recovery in stable condition. All instrument counts, needle counts, and lap counts were correct. Job ID: [id number]
--- NOTE | 2018-09-30 14:01 | EKG ---
Test Reason : EPIGASTRIC PAIN Blood Pressure : / mmHG Vent. Rate : 060 BPM Atrial Rate : 060 BPM P-R Int : 140 ms QRS Dur : 086 ms QT Int : 464 ms P-R-T Axes : 068 008 065 degrees QTc Int : 464 ms Normal sinus rhythm Possible Left atrial enlargement Flat T in aVL Borderline ECG Confirmed by MIKE DAVID, JEFF ([id number]), newspaper photo editor YESSICA ANDINO ([id number]) on 09/30/2018 2:00:40 PM Referred By: Confirmed By:JEFF MCKEON MD
== END 2018-09-25 15:19 | disposition home or self-care (01) | DRG 419 ==
LOC: SCSER 00:34 → T4-B 02:49
PROVIDERS: ADMIT Family Medicine; ATTEND Family Medicine
PROC: 0FT44ZZ Resection of Gallbladder, Percutaneous Endoscopic Approach (ICD-10-PCS; principal; 2018-09-24)
PROC: BF101ZZ Fluoroscopy of Bile Ducts using Low Osmolar Contrast (ICD-10-PCS; 2018-09-24)
DX: K85.10 Biliary acute pancreatitis without necrosis or infection (principal); I10 Essential (primary) hypertension; E03.9 Hypothyroidism, unspecified; E78.5 Hyperlipidemia, unspecified; G47.00 Insomnia, unspecified; Z79.82 Long term (current) use of aspirin
CPT/HCPCS: 36415; 47532; 71045; 76705; 80053; 81003; 81015; 83690; 84484; 85025; 87040; 87077; 87149; 87186; 88304; 93005; 96361; 96374; 96375; A4216; J0131; J0690; J0696; J1100; J1885; J2001; J2270; J2405; J2704; J3010; J7050; Q9961; S0028